=== PATIENT | female | born 1965 | race Caucasian/White ===

== ENCOUNTER 2017-12-09 08:10 | Emergency (ER) | payer BC ==
[~2017-12-09] VITALS: Ht 170.2 cm; Wt 93.4 kg
[~2017-12-09 08:10] MED LIST: COL100 PO; FLO4 PO; LAC PO; LEVAQUIN750 MG PO; NOR10T PO; NORCO1 TA2 PO
[2017-12-09 08:20] VITALS: Ht 170.2 cm; Wt 93.4 kg
[2017-12-09 09:39] VITALS: BP 131/81
== END 2017-12-09 09:39 | disposition home or self-care (01) ==
LOC: ED 08:10
DX: S62.644A Nondisplaced fracture of proximal phalanx of right ring finger, initial encounter for closed fracture (principal); I10 Essential (primary) hypertension; Z90.710 Acquired absence of both cervix and uterus; Z90.49 Acquired absence of other specified parts of digestive tract; W18.49XA Other slipping, tripping and stumbling without falling, initial encounter; Y93.89 Activity, other specified; Y92.89 Other specified places as the place of occurrence of the external cause; Y99.8 Other external cause status